=== PATIENT | female | born 1965 | race Caucasian/White ===

== ENCOUNTER 2024-01-19 22:56 | Observation (INO) | payer BC, OTHER ==
[2024-01-19 23:26] LABS: #Basophils 0.03 10x3/uL (0.0-0.2); %Basophils 0.8 % (0.0-1.0); %Eosinophils 3.9 % (0.0-10.0); %Lymphocytes 27.1 % (21.0-51.0); %Monocytes 9.8 % (0.0-10.0); %Neutrophils 58.1 % (42.0-75.0); Hematocrit 34.7 % (36.0-47.0); Hemoglobin 12.4 g/dL (12.0-16.0); Mean Corpuscular HGB CONC 35.7 g/dL (32.0-36.0); Mean Corpuscular Hemoglobin 32.1 pg (27.0-31.0); Mean Corpuscular Volume 89.9 fL (78.0-98.0); Platelet Count 154 10x3/uL (130-400); Red Blood Cell (RBC) Count 3.86 mill/uL (4.20-5.40)
[2024-01-19] MEDS ORDERED: Ondansetron PF 4 MG/2 ML Vial ONE (23:28)
[2024-01-19 23:41] LABS: ALT (SGPT) 24 U/L (8-55); AST (SGOT) 23 U/L (5-34); Albumin 3.9 g/dL (3.5-5.0); Alkaline Phosphatase 62 U/L (40-110); Anion Gap 14 mmol/L (10-20); BUN (Urea Nitrogen) 16 mg/dL (9.8-20.1); Bilirubin, Total 0.5 mg/dL (0.2-1.2); Calc. Creatinine Clearance 0 mL/min (70-130); Calcium 8.8 mg/dL (7.8-10.44); Carbon Dioxide 20 mmol/L (22-29); Chloride 108 mmol/L (98-107); Estimated GFR 64; Globulin 2.9 g/dL (2.4-3.5); Glucose 134 mg/dL (70-105); Potassium 3.4 mmol/L (3.5-5.1); Protein, Total 6.8 g/dL (6.0-8.3); Sodium 139 mmol/L (136-145)
[2024-01-19 23:45] LABS: Troponin I 0.016 ng/mL (< 0.028)
[2024-01-19] MEDS ORDERED: Potassium Chloride 20 MEQ TAB ONE (23:49)
[2024-01-20] MEDS ORDERED: Acetaminophen 325 MG TAB PO PRN (01:30)
[2024-01-20] MEDS ORDERED: Ondansetron PF 4 MG/2 ML Vial IVP PRN (01:30)
[2024-01-20] MEDS ORDERED: Ondansetron ODT 4 MG TAB SL PRN (01:30)
[2024-01-20] MEDS ORDERED: Dextrose 50% Abboject 50 ML SYRINGE SLOW IVP PRN (01:32)
[2024-01-20] MEDS ORDERED: Dextrose 5% in Water 1,000 ML IV PRN (01:32)
[2024-01-20] MEDS ORDERED: Glucagon 1 MG/ML KIT IM PRN (01:32)
[2024-01-20] MEDS ORDERED: Insulin Regular, Human 100 UNIT/ML 10 ML VIAL SC PRN ×2 (01:32)
[2024-01-20] MEDS ORDERED: hydrALAZINE 20 MG/ML VIAL SLOW IVP PRN (01:36)
[2024-01-20] MEDS ORDERED: Methocarbamol 500 MG TAB PO PRN (01:39)
[2024-01-20] MEDS ORDERED: Nitroglycerin 0.4 MG TAB (25 Tab Bottle) SL PRN (01:39)
[2024-01-20] MEDS ORDERED: Albuterol 200 PUFF (6.7GM INHALER) INH PRN (01:42)
[2024-01-20 02:33] VITALS: BMI 29.9
[2024-01-20 04:23] LABS: #Basophils 0.03 10x3/uL (0.0-0.2); %Basophils 0.7 % (0.0-1.0); %Eosinophils 3.9 % (0.0-10.0); %Lymphocytes 31.8 % (21.0-51.0); %Monocytes 11.2 % (0.0-10.0); %Neutrophils 51.7 % (42.0-75.0); Hematocrit 35.2 % (36.0-47.0); Mean Corpuscular HGB CONC 34.1 g/dL (32.0-36.0); Mean Corpuscular Hemoglobin 31.6 pg (27.0-31.0); Mean Corpuscular Volume 92.6 fL (78.0-98.0); Mean Platelet Volume 10.1 fL (7.4-10.4); Platelet Count 167 10x3/uL (130-400)
[2024-01-20 04:37] LABS: Anion Gap 13 mmol/L (10-20); BUN (Urea Nitrogen) 14 mg/dL (9.8-20.1); Calc. Creatinine Clearance 75 mL/min (70-130); Calcium 8.8 mg/dL (7.8-10.44); Carbon Dioxide 22 mmol/L (22-29); Chloride 108 mmol/L (98-107); Estimated GFR 64; Glucose 131 mg/dL (70-105); Magnesium 2.2 mg/dL (1.6-2.6); Phosphorus 3.4 mg/dL (2.3-4.7); Potassium 3.9 mmol/L (3.5-5.1); Sodium 139 mmol/L (136-145)
[2024-01-20 04:43] LABS: Troponin I 0.024 ng/mL (< 0.028)
[2024-01-20] MEDS: Levothyroxine Sodium 75 MCG TAB PO SCH (05:47)
[2024-01-20 07:30] LABS: Troponin I Less than 0.010 ng/mL (< 0.028)
[2024-01-20] MEDS: Clopidogrel Bisulfate 75 MG TAB PO SCH (08:24)
[2024-01-20] MEDS: Ezetimibe 10 MG TAB PO SCH (08:24)
[2024-01-20] MEDS: Enoxaparin 40 MG (0.4 mL) SYRINGE SC SCH (08:24)
[2024-01-20] MEDS: Losartan 25 MG TAB PO SCH (08:24)
[2024-01-20] MEDS: Empagliflozin 10 MG TAB PO SCH (08:24)
[2024-01-20] MEDS: Ranolazine ER 500 MG TAB PO SCH (08:25)
[2024-01-20] MEDS: Sertraline 100 MG TAB PO SCH (08:25)
[2024-01-20] MEDS: traZODone HCl 50 MG TAB PO SCH (08:25)
[2024-01-20] MEDS: Atorvastatin Calcium 40 MG TAB PO SCH (08:27)
[2024-01-20] MEDS: Acetaminophen 325 MG TAB PO PRN (11:06)
[2024-01-20 16:41] VITALS: TEMP 98.3
[2024-01-20] MEDS: Amlodipine 5 MG TAB PO SCH (17:23)
[2024-01-20 18:28] VITALS: BP 129/60
[2024-01-21] MEDS ORDERED: Amlodipine 5 MG TAB PO SCH (09:00)
== END 2024-01-20 17:10 | disposition home or self-care (01) ==
LOC: ERS 22:56 → OBS 01-20 01:13
PROVIDERS: ADMIT Family Medicine; ATTEND Family Medicine
DX: R07.9 Chest pain, unspecified (principal); I25.10 Atherosclerotic heart disease of native coronary artery without angina pectoris; I11.0 Hypertensive heart disease with heart failure; I50.9 Heart failure, unspecified; I16.0 Hypertensive urgency; I25.2 Old myocardial infarction; E11.9 Type 2 diabetes mellitus without complications; E03.9 Hypothyroidism, unspecified; E87.6 Hypokalemia; F17.290 Nicotine dependence, other tobacco product, uncomplicated; Z95.1 Presence of aortocoronary bypass graft; Z86.73 Personal history of transient ischemic attack (TIA), and cerebral infarction without residual deficits; Z91.048 Other nonmedicinal substance allergy status; Z88.8 Allergy status to other drugs, medicaments and biological substances; Z79.890 Hormone replacement therapy; Z79.02 Long term (current) use of antithrombotics/antiplatelets; Z79.51 Long term (current) use of inhaled steroids; Z79.899 Other long term (current) drug therapy
CPT/HCPCS: 36415; 36416; 71045; 80048; 80053; 83735; 83880; 84100; 84484; 85025; 93005; 96372; 96374; G0378; J1650; J2405